=== PATIENT | male | born 1940 | race Caucasian/White ===

== ENCOUNTER 2017-06-02 11:44 | Inpatient (IN) | payer MEDICARE, OTHER ==
[~2017-06-02] VITALS: Ht 180.3 cm; Wt 88.6 kg
[2017-06-02] MEDS ORDERED: FENTANYL CITRATE/PF 100MCG/2 ML INJ ONE (14:44)
[2017-06-02] MEDS ORDERED: MIDAZOLAM HCL 2 MG/2 ML VIAL ONE (14:44)
--- NOTE | 2017-06-02 15:49 | Diagnostic Imaging Report ---
PROCEDURE:GALLBLADDER ULTRASOUND COMPARISON:None. INDICATIONS:RUQ Pain FINDINGS: Liver: <14.7 cm in length. Normal hepatic parenchymal echogenicity. No focal mass. Main portal vein: 0.9 cm. Hepatopetal flow. Gallbladder: The echogenic focus with posterior acoustic shadowing in the gallbladder neck consistent with a large calculus. In addition, there is a small volume of sludge in small floating gallstones. Gallbladder wall measures 0.3 cm in thickness which is within upper limits of normal. Common Bile Duct: 0.4 cm. reported for No echogenic filling defect. Sonographic De's sign: Negative. Right kidney: 11.7 cm in length. No solid or cystic mass, echogenic calculi, or hydronephrosis. Normal parenchymal echogenicity. Pancreas: Not well visualized due to shadowing from overlying bowel gas. Inferior vena cava: Normal. Aorta: Normal. Ascites: None. CONCLUSION: 1. Cholelithiasis and gallbladder sludge. Calculus in the gallbladder neck may be impacted. Gallbladder wall within the upper limits of normal for thickness, however, no pericholecystic fluid or sonographic De's sign. Carole Carreno M.D. Dictated by: Carole Carreno M.D. on 06/02/2017 at 15:48 Electronically approved by: Carole Carreno M.D. on 06/02/2017 at 15:48
[2017-06-02 16:47] LABS: BASOPHILS # (AUTO) 0.1 (0.0-0.1); BASOPHILS % 0.9 % (0.0-1.0); EOSINOPHILS # (AUTO) 0.2 (0.0-0.4); HEMATOCRIT 42.5 % (38.2-49.6); HEMOGLOBIN 14.4 g/dL (14.0-18.0); LYMPHOCYTES # (AUTO) 1.6 (1.0-3.2); LYMPHOCYTES % 28.7 % (18.0-39.1); MEAN CORPUSCULAR HEMOGLOBIN 31.3 pg (28-32); MEAN CORPUSCULAR HGB CONC 33.9 g/dL (31-35); MEAN CORPUSCULAR VOLUME 92.4 fL (81-99); MONOCYTES # (AUTO) 0.5 (0.2-0.8); MONOCYTES % 9.4 % (4.4-11.3); NEUTROPHILS # (AUTO) 3.1 (2.1-6.9); NEUTROPHILS % 57.8 % (38.7-80.0); PLATELET COUNT 181 x10e3/uL (140-360); RED CELL DISTRIBUTION WIDTH 12.5 % (11.7-14.4)
[2017-06-02 16:56] LABS: INR 1.18; PROTHROMBIN TIME 14.1 seconds (11.9-14.5)
[2017-06-02 16:57] LABS: PARTIAL THROMBOPLASTIN TIME 28.2 seconds (23.8-35.5)
[2017-06-02 17:09] LABS: ALANINE AMINOTRANSFERASE 15 IU/L (0-55); ALBUMIN 4.2 g/dL (3.5-5.0); ALBUMIN/GLOBULIN RATIO 1.2 (0.8-2.0); ALKALINE PHOSPHATASE 68 IU/L (40-150); ANION GAP 13.2 mmol/L (8-16); BLOOD UREA NITROGEN 20 mg/dL (7-26); BUN/CREATININE RATIO 22 (6-25); CALCIUM 9.2 mg/dL (8.4-10.2); CARBON DIOXIDE 23 mmol/L (22-29); CHLORIDE 106 mmol/L (98-107); CREATININE, SERUM 0.89 mg/dL (0.72-1.25); EST GLOMERULAR FILTRATION RATE > 60 ML/MIN (60-); GLUCOSE 93 mg/dL (74-118); LIPASE 30 U/L (8-78); MAGNESIUM 2.3 MG/DL (1.3-2.1); POTASSIUM 4.2 mmol/L (3.5-5.1); SODIUM 138 mmol/L (136-145)
--- NOTE | 2017-06-02 19:00 | Diagnostic Imaging Report ---
EXAM: CT Abdomen and Pelvis WITH contrast INDICATION: Abdominal pain. Abnormal ultrasound performed earlier on the same day. COMPARISON: None. Correlation with ultrasound right upper quadrant dated 06/02/2017. TECHNIQUE: Abdomen and pelvis were scanned utilizing a multidetector helical scanner from the lung base to the pubic symphysis after administration of IV contrast. Coronal and sagittal reformations were obtained. Routine protocol was performed. Scan was performed when during portal venous phase. IV CONTRAST: 100 cc Isovue-[id number]. ORAL CONTRAST: Water RADIATION DOSE: Total DLP: 691.58 mGy*cm Estimated effective dose: (DLP x 0.015 x size factor) mSv COMPLICATIONS: None FINDINGS: LINES and TUBES: None. LOWER THORAX: Multivessel coronary artery calcification. HEPATOBILIARY: No focal hepatic lesions. No biliary ductal dilation. GALLBLADDER: No radio-opaque stones or sludge. No wall thickening. SPLEEN: Borderline enlargement of the spleen measuring 12.8 cm in craniocaudal dimension. PANCREAS: No focal masses or ductal dilatation. ADRENALS: No adrenal nodules. KIDNEYS/URETERS: Kidneys enhance symmetrically. No hydronephrosis. No cystic or solid mass lesions. No stones. GI TRACT: No abnormal distention, wall thickening, or evidence of bowel obstruction. Nodular wall thickening of the cecum Appendix is normal. Colon interposed between the liver in the right upper quadrant abdominal wall. PELVIC ORGANS/BLADDER: Unremarkable. LYMPH NODES: No lymphadenopathy. VESSELS: Atherosclerotic calcifications of the aorta without aneurysmal dilatation. PERITONEUM / RETROPERITONEUM: No free air or fluid. BONES: Status post laminectomy and posterior fusion of T12-L3 with transpedicular screws system. Degenerative disc disease and spondylosis particularly at L5-S1. Grade 1 anterolisthesis of L4 in relation to L5. SOFT TISSUES: Oval soft tissue structure in the right inguinal canal suggestive of a testicle. IMPRESSION: 1. No acute abdominopelvic abnormality. Signed by: Dr. Carole Carreno M.D. on 06/02/2017 6:57 PM
[2017-06-02] MEDS ORDERED: CEFOXITIN 1GM/ DEXTROSE 50ML ML IV SCH (20:15)
[2017-06-02] MEDS: METRONIDAZOLE 500MG/NS 100ML 100 ML IV SCH (20:57)
[2017-06-02] MEDS: SODIUM CHLORIDE 0.9% 1000ML 1,000 ML IV SCH (20:57)
[2017-06-02 21:05] VITALS: BP 147/87
[2017-06-02 21:30] VITALS: BP_SYST 147; BP_DIAS 85; BP_DIAS 87
[2017-06-02] MEDS: FAMOTIDINE 20 MG/2 ML VIAL IV SCH (22:00)
[2017-06-02] MEDS: CEFOXITIN SOD 1 GM VIAL IV SCH (22:00)
[2017-06-02] MEDS ORDERED: IOPAMIDOL 370 MG/ML 200 ML INFUS..BTL INJ ONE (22:34)
[2017-06-02] MEDS ORDERED: SODIUM CHLORIDE 0.9% 50ML 50 ML ONE (22:34)
[2017-06-02] MEDS ORDERED: LEVETIRACETAM 500MG/5ML VIAL 250 MG in SODIUM CHLORIDE 0.9% 100 ML 100 ML IV SCH (23:30)
[2017-06-03] VITALS (7 sets, daily range): BP systolic 95–143; BP diastolic 63–78
[2017-06-03] MEDS: ONDANSETRON HCL INJ 2 MG/ML VIAL IV PRN ×2 (00:16→06:50)
[2017-06-03] MEDS: MORPHINE SULFATE 2 MG/ML SYR IV PRN ×2 (00:16→06:50)
[2017-06-03] MEDS ORDERED: LEVETIRACETAM 500 MG/5 ML VIAL IV ONE (00:40)
[2017-06-03] MEDS ORDERED: SODIUM CHLORIDE 0.9% 50ML 50 ML ONE (00:48)
[2017-06-03] MEDS: SODIUM CHLORIDE 0.9% IV SCH ×2 (00:48→12:45)
[2017-06-03] MEDS: LEVETIRACETAM IV SCH ×2 (00:48→12:45)
[2017-06-03] MEDS: METRONIDAZOLE 500MG/NS 100ML 100 ML IV SCH ×4 (04:00→20:39)
[2017-06-03] MEDS: SODIUM CHLORIDE 0.9% 1000ML 1,000 ML IV SCH ×3 (04:04→20:39)
[2017-06-03] MEDS ORDERED: VENLAFAXINE HCL75 M2 PO (05:42)
[2017-06-03] MEDS ORDERED: ASPIR 8181 MG PO (05:42)
[2017-06-03] MEDS ORDERED: GABAPENTIN300 MG PO (05:42)
[2017-06-03] MEDS ORDERED: LEVETIRACETAM500 MG PO (05:42)
[2017-06-03] MEDS ORDERED: ALIGN4 MG PO (05:42)
[2017-06-03] MEDS ORDERED: TAMSULOSIN HCL0.4 MG PO (05:42)
[2017-06-03] MEDS ORDERED: SIMVASTATIN20 MG PO (05:42)
[2017-06-03] MEDS ORDERED: TIZANIDINE HCL4 MG PO (05:42)
[2017-06-03] MEDS ORDERED: GAS-X125 M1 PO (05:42)
[2017-06-03] MEDS ORDERED: PANTOPRAZOLE SO40 MG PO (05:42)
[2017-06-03] MEDS: CEFOXITIN SOD 1 GM VIAL IV SCH ×3 (06:50→20:38)
[2017-06-03] MEDS ORDERED: HYDROCODONE PO (07:06)
[2017-06-03 07:19] LABS: BASOPHILS % 0.9 % (0.0-1.0); EOSINOPHILS # (AUTO) 0.3 (0.0-0.4); EOSINOPHILS % 5.5 % (0.0-6.0); HEMATOCRIT 38.2 % (38.2-49.6); HEMOGLOBIN 12.9 g/dL (14.0-18.0); LYMPHOCYTES # (AUTO) 1.5 (1.0-3.2); LYMPHOCYTES % 32.8 % (18.0-39.1); MEAN CORPUSCULAR HEMOGLOBIN 31.2 pg (28-32); MEAN CORPUSCULAR HGB CONC 33.8 g/dL (31-35); MEAN CORPUSCULAR VOLUME 92.3 fL (81-99); MONOCYTES # (AUTO) 0.5 (0.2-0.8); MONOCYTES % 10.2 % (4.4-11.3); NEUTROPHILS # (AUTO) 2.3 (2.1-6.9); NEUTROPHILS % 50.6 % (38.7-80.0); PLATELET COUNT 172 x10e3/uL (140-360); RED BLOOD COUNT 4.14 x10e6/uL (4.3-5.7); RED CELL DISTRIBUTION WIDTH 12.4 % (11.7-14.4)
[2017-06-03 07:50] LABS: ALANINE AMINOTRANSFERASE 12 IU/L (0-55); ALBUMIN 3.5 g/dL (3.5-5.0); ALBUMIN/GLOBULIN RATIO 1.3 (0.8-2.0); ALKALINE PHOSPHATASE 56 IU/L (40-150); AMYLASE 80 U/L (25-125); ANION GAP 10.1 mmol/L (8-16); BLOOD UREA NITROGEN 13 mg/dL (7-26); BUN/CREATININE RATIO 17 (6-25); CALCIUM 8.3 mg/dL (8.4-10.2); CARBON DIOXIDE 23 mmol/L (22-29); CHLORIDE 110 mmol/L (98-107); CREATININE, SERUM 0.77 mg/dL (0.72-1.25); EST GLOMERULAR FILTRATION RATE > 60 ML/MIN (60-); GLUCOSE 93 mg/dL (74-118); LIPASE 26 U/L (8-78); POTASSIUM 4.1 mmol/L (3.5-5.1); SODIUM 139 mmol/L (136-145)
[2017-06-03] MEDS: FAMOTIDINE 20 MG/2 ML VIAL IV SCH ×2 (08:55→20:38)
[2017-06-03] MEDS ORDERED: ONDANSETRON HCL INJ 2 MG/ML VIAL IV PRN (12:00)
[2017-06-03] MEDS ORDERED: MORPHINE SULFATE 2 MG/ML SYR IV PRN ×2 (12:15→15:00)
[2017-06-03] MEDS ORDERED: BUPIVACAINE 0.25% 30ML SDV INJ ONE (13:03)
[2017-06-03] MEDS ORDERED: ROCURONIUM BROMIDE 10 MG/ML 5ML VIAL ONE (13:49)
[2017-06-03] MEDS ORDERED: NEOSTIGMINE 5 MG/5ML SYR ONE (13:49)
[2017-06-03] MEDS ORDERED: GLYCOPYRROLATE INJ 1MG/ 5 ML SYR ONE (13:49)
[2017-06-03] MEDS ORDERED: PROPOFOL IV EMULSION 10 MG/ML 20 ML VIAL ONE (13:49)
[2017-06-03] MEDS ORDERED: LIDOCAINE HCL 2% LOCAL INJ 5 ML SDV VIAL INJ ONE (13:49)
[2017-06-03] MEDS ORDERED: SEVOFLURANE INHAL SOLN 250 ML PEN BTL ONE (13:49)
[2017-06-03] MEDS ORDERED: ACETAMINOPHEN 1000 MG/100 ML IV ONE (13:49)
[2017-06-03] MEDS ORDERED: ONDANSETRON HCL INJ 2 MG/ML VIAL ONE (13:49)
[2017-06-03] MEDS ORDERED: DEXAMETHASONE SOD PHOS INJ 4 MG/ML VIAL ONE (13:49)
[2017-06-03] MEDS ORDERED: MORPHINE SULFATE 5 MG/ML VIAL IV PRN (14:45)
--- NOTE | 2017-06-03 16:31 | Operative Report ---
DATE OF PROCEDURE: June 03, 2017 PREOPERATIVE DIAGNOSIS: Cholecystitis. POSTOPERATIVE DIAGNOSIS: Cholecystitis. OPERATIVE PROCEDURE: Laparoscopic cholecystectomy. ANESTHESIA: General, Dr. Hassan. INDICATIONS FOR SURGERY: A 76-year-old male with history of epigastric abdominal pain for a week duration, with ultrasound showing stones in the neck of the gallbladder. Patient consented for laparoscopic cholecystectomy with all attendant risks discussed. FINDINGS: Chronic cholecystitis. DESCRIPTION OF PROCEDURE: The patient brought to the OR intubated. Abdomen prepped with alcohol and draped in sterile fashion. An infraumbilical incision is made and a 10 mm port inserted. Insufflation begun. Under direct vision, other port site placed in the mid epigastric right upper quadrant. Gallbladder chronically inflamed with adhesions from colon and omentum. We proceeded to take down the adhesions using the scissors, the colon from the gallbladder fundus which was then retracted in cephalad direction. Neck of the gallbladder retracted laterally with blunt dissection. We isolated the cystic artery and cystic duct and triple clipped and divided between clips. Gallbladder detached from the liver with cautery and taken out through umbilical incision. Operative field irrigated and hemostasis achieved. All ports removed under direct vision. Fascia closed with interrupted 0 Vicryl and skin closed with subcuticular stitch. Patient was extubated and transported to recovery room. Estimated blood loss 5 mL. Job#: [id number] MARK
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
[2017-06-04] VITALS: BP 132/74
[2017-06-04] MEDS: LEVETIRACETAM IV SCH ×2 (00:07→12:45)
[2017-06-04] MEDS: SODIUM CHLORIDE 0.9% IV SCH ×2 (00:07→12:45)
[2017-06-04 04:00] VITALS: BP 129/67
[2017-06-04] MEDS: CEFOXITIN SOD 1 GM VIAL IV SCH (05:15)
[2017-06-04] MEDS: METRONIDAZOLE 500MG/NS 100ML 100 ML IV SCH (05:15)
[2017-06-04 08:04] VITALS: BP 128/67
[2017-06-04 09:46] VITALS: BP 128/67
[2017-06-04] MEDS ORDERED: HYDROCODONE/APAP 5MG-325MG TAB PO ONE (11:30)
[2017-06-04 12:24] VITALS: BP 118/60
--- NOTE | 2017-06-04 13:38 | Discharge Summary ---
PRIMARY CARE DOCTOR: Dr. Francisco Alicia and also Dr. Gary Torres. FINAL DIAGNOSIS: Chronic cholecystitis. SECONDARY DIAGNOSIS 1. Seizure disorder. 2. Depression. 3. Benign prostatic hypertrophy. 4. Dyslipidemia. 5. Chronic back pain. HISTORY: Per H\T\P. CONSULTANTS: Dr. Malik, general surgery. PROCEDURES AND STUDIES PERFORMED 1. Laparoscopic cholecystectomy. 2. Computed tomography of the abdomen and pelvis. 3. Abdominal ultrasound. HOSPITAL COURSE: Patient was admitted. Empiric IV antibiotics were started. Patient was evaluated by Dr. Malik and subsequently underwent laparoscopic cholecystectomy without any problem. The abdominal pain that he had prior to coming to the hospital is no longer there. Patient was seen and examined today. I have discussed with Dr. Malik. Patient will go home today. Today is postop day number 1. The patient will follow up with Dr. Malik in a week. It took 32 minutes total to discharge this patient. CONDITION ON DISCHARGE: Improved. DISCHARGE MEDICATIONS: Please see medication reconciliation form. JUN JURADO M.D. Job#: [id number] EV cc:MD GARY CASTELLANOS MD
== END 2017-06-04 16:05 | disposition home or self-care (01) | DRG 419 ==
LOC: ER 11:44 → MED/SURG 21:01
PROVIDERS: ADMIT Internal Medicine; ATTEND Internal Medicine
PROC: 0FT44ZZ Resection of Gallbladder, Percutaneous Endoscopic Approach (ICD-10-PCS; principal; 2017-06-03 13:15)
DX: K80.10 Calculus of gallbladder with chronic cholecystitis without obstruction (principal); E11.9 Type 2 diabetes mellitus without complications; G40.909 Epilepsy, unspecified, not intractable, without status epilepticus; I10 Essential (primary) hypertension; I25.10 Atherosclerotic heart disease of native coronary artery without angina pectoris; G89.29 Other chronic pain; M54.9 Dorsalgia, unspecified; N40.0 Benign prostatic hyperplasia without lower urinary tract symptoms; G47.33 Obstructive sleep apnea (adult) (pediatric)
CPT/HCPCS: 36415; 74177; 76705; 80053; 82150; 83690; 83735; 85025; 85610; 85730; 88304; 93005; 99284; J0694; J1100; J2001; J2250; J2270; J2405; J7030; Q9967

== ENCOUNTER → 2018-10-29 | Outpatient (CLI) | payer OTHER ==
[~2018-10-29] MED LIST: ALIGN4 MG PO; ASPIR 8181 MG PO; GABAPENTIN300 MG PO; GAS-X125 M1 PO; HYDROCODONE PO; LEVETIRACETAM500 MG PO; PANTOPRAZOLE SO40 MG PO; SIMVASTATIN20 MG PO; TAMSULOSIN HCL0.4 MG PO; TIZANIDINE HCL4 MG PO; VENLAFAXINE HCL75 M2 PO
--- NOTE | 2018-10-29 16:10 | Diagnostic Imaging Report ---
Exam: Lumbar spine MRI without IV contrast History: Sharp low back pain with pain in both legs. Prior back surgeries with prior spinal fusion. Comparison studies: Included lumbar spine from abdomen pelvis CT 06/02/2017. Technique: Sagittal and axial T2 , sagittal T1 and IR, axial spin density oblique and coronal T2. Intravenous contrast: None Findings: Number of lumbar vertebral bodies: 5. Alignment: Hyperlordotic curvature with approximately 6 mm grade 1 anterolisthesis of L4 on L5. Soft tissues and dorsal paraspinal musculature: Postsurgical changes from T11-T12 through L5-S1. Fluid collection which contains thin septations in the midline dorsal paraspinal soft tissues and extends from T12-L1 to L5-S1 measures approximately 10.6 x 3.5 x 3.9 cm (SI x AP x TV) in greatest dimensions most likely most likely reflects postsurgical seroma. Nonspecific edema present in the dorsal paraspinal musculature with severe atrophic changes in the dorsal paraspinal muscles from L2 into the sacrum. Advanced atrophic changes also present in the partially imaged bilateral gluteal musculature. Lower thoracic cord: Normal in signal and morphology. The tip of the conus at L1-L2. Cauda equina: No masses. No arachnoiditis. Vertebrae: No compression fracture, infection or neoplasm. Postsurgical changes with posterior instrumented fusion from T12 to L3 and solid posteriolateral osseous fusion from T12 through L5 as seen on the prior CT. Bilateral laminectomies are present from T12-L1 through L4-L5 and likely prior laminotomies at L5-S1. The L1-L2 disc space is fused. Findings could be correlated for prior discectomy changes. Possible discectomy changes at L1-L2, L2-L3 and L3-L4 which could be correlated with surgical history. Degenerative changes: T10-T11: Mildly degenerated disc. Disc bulge and thickened and ossified ligament flava result in severe canal stenosis. T11-T12: Mildly degenerated disc. Disc bulge, thickened ligamentum flavum and bilateral facet arthrosis result in mild canal stenosis. No significant foraminal stenosis. T12-L1: Patent canal and foramina. L1-L2: Complete loss of disc height with fused disc space. Disc osteophyte complex and hypertrophic changes at the facets with mild bilateral foraminal stenosis. Patent canal. L2-L3: Severely degenerated disc with partially fused disc space. Disc osteophyte complex and hypertrophic changes at the facets with moderate bilateral foraminal stenosis. No significant canal stenosis. L3-L4: Mild loss of disc height with partially fused disc space anteriorly and posteriorly. Osteophyte complex and hypertrophic changes at the facets with moderate bilateral foraminal stenosis. No significant canal stenosis. L4-L5: Approximate 6 mm S 1 anterolisthesis of L4 on L5 with associated uncovered disc/disc bulge and hypertrophic changes at the facets with moderate foraminal stenosis (left greater than right). No significant canal stenosis. L5-S1: Mild loss of disc height with vacuum phenomenon. Disc osteophyte complex and severe bilateral facet arthrosis with moderate right and mild left foraminal stenosis. No significant canal stenosis. IMPRESSION: 1. Postsurgical changes of prior posterior lumbar fusion, laminectomies and possible prior discectomies as described. Fluid collection in the midline dorsal lumbar soft tissues is most likely a postsurgical seroma. 2. Nonspecific edema with advanced atrophy in the dorsal paraspinal musculature. 3. Severe degenerative canal stenosis at the partially imaged T10-T11 level. No lumbar canal stenosis. 4. Moderate foraminal stenosis bilaterally from L2 to S1 and on the right at L5-S1. 5. Additional multilevel degenerative changes as described with multilevel disc degeneration and severe facet arthrosis at L5-S1. Signed by: Dr. Ascencion Terrazas M.D. on 10/29/2018 4:06 PM
== END ==
LOC: MRI 10:03
PROVIDERS: ATTEND Anesthesiology Pain Medicine
DX: M96.1 Postlaminectomy syndrome, not elsewhere classified (principal)
CPT/HCPCS: 72148